=== PATIENT | male | born 1940 | race Caucasian/White ===

== ENCOUNTER 2024-12-31 20:35 | Emergency (ER) | payer MEDICARE ==
[~2024-12-31] VITALS: Ht 172.7 cm; Wt 69.4 kg
[2024-12-31] MEDS ORDERED: ELIQUIS2.5 MG PO (21:15)
[2024-12-31] MEDS ORDERED: LEVOTHYROXINE13 MCG (21:16)
[2024-12-31] MEDS ORDERED: LEVE500 PO (21:16)
[2025-01-01 02:29] LABS: BASOPHILS ABSOLUTE AUTO 0.06 K/mm3 (0.00-0.23); BASOPHILS PERCENT AUTO 1 % (0-2); EOSINOPHILS ABSOLUTE AUTO 0.61 K/mm3 (0.00-0.68); EOSINOPHILS PERCENT AUTO 7 % (0-6); Hematocrit 43.7 % (37.0-53.0); Hemoglobin 14.4 g/dL (13.5-17.5); IMMATURE GRAN ABSOLUTE AUTO 0.02 K/mm3 (0.00-0.10); IMMATURE GRAN PERCENT AUTO 0 % (0-1); LYMPHOCYTES ABSOLUTE AUTO 1.39 K/mm3 (0.84-5.20); LYMPHOCYTES PERCENT AUTO 16 % (21-46); MONOCYTES ABSOLUTE AUTO 0.87 K/mm3 (0.16-1.47); MONOCYTES PERCENT AUTO 10 % (4-13); Mean Corpuscular HGB 29.4 pg (26.0-34.0); Mean Corpuscular Volume 89 fL (80-100); Mean Platelet Volume 9.2 fL (9.1-12.4); NEUTROPHILS ABSOLUTE AUTO 5.97 K/mm3 (1.96-9.15); NEUTROPHILS PERCENT AUTO 67 % (41-73); Platelet Count 239 K/mm3 (150-400); RDW Coefficient Variation 13.2 % (11.7-14.2); RDW Standard Deviation 43.5 fL (35.1-46.3); Red Blood Cell Count 4.89 M/mm3 (4.30-5.90); White Blood Cell Count 8.92 K/mm3 (4.00-11.30)
[2025-01-01] MEDS ORDERED: Apixaban 5 MG Tab PO ONE (02:40)
[2025-01-01] MEDS ORDERED: Rosuvastatin Calcium 10 MG Tab PO ONE (02:45)
[2025-01-01] MEDS ORDERED: Tamsulosin HCl 0.4 MG Cap PO ONE (02:45)
[2025-01-01] MEDS ORDERED: LevETIRAcetam 500 MG Tab PO ONE (02:45)
[2025-01-01 03:09] LABS: Alanine Aminotransfer (ALT/SGP 17 U/L (12-78); Albumin, Blood 3.7 g/dL (3.4-5.0); Albumin/Globulin Ratio 1.1 (0.8-1.8); Alk Phos 83 U/L (50-136); Anion Gap 8 mmol/L (3-11); Aspartate Aminotrans (AST/SGOT 26 U/L (12-37); Bilirubin, Total 0.5 mg/dL (0.1-1.0); Blood Urea Nitrogen 16 mg/dL (8-24); Bun/Creatinine Ratio 10.9 (12.0-20.0); CO2, Blood 27 mmol/L (21-32); Calcium, Blood 8.9 mg/dL (8.5-10.1); Chloride, Blood 106 mmol/L (98-108); Creatinine, Blood 1.47 mg/dL (0.60-1.20); Ethanol (Alcohol), Blood, Med <3 mg/dL; Globulin, Blood 3.5 g/dL (2.2-4.0); Glomerular Filtration Rate 46 (60-); Glucose, Blood 106 mg/dL (70-99); Potassium, Blood 4.4 mmol/L (3.5-5.5); Sodium, Blood 137 mmol/L (136-145); Total Protein, Blood 7.2 g/dL (6.4-8.2)
[2025-01-01 03:35] LABS: Source, Urine Clean Catch
[2025-01-01 03:48] LABS: Bilirubin, Urine Neg (Neg); Blood, Urine Neg (Neg); Glucose Qualitative, Urine Neg (Neg); Ketones, Urine Neg (Neg); Leukocyte Esterase, Urine Neg (Neg); Nitrite, Urine Neg (Neg); Protein, Urine 1+ (Neg); Urobilinogen, Urine NORM (Normal); pH, Urine 6.5 (5.0-8.0)
[2025-01-01 04:05] LABS: Appearance, Urine Clear (Clear); Color, Urine Yellow (P-Yellow)
[2025-01-01] MEDS ORDERED: Acetaminophen 325 MG TABLET PO ONE (04:05)
[2025-01-01 04:11] LABS: U Amphetamine Screen Not Detected; U Barbituate Screen Not Detected; U Benzodiazapine Screen Not Detected; U Buprenorphine Screen Not Detected; U Cannabinoids Screen Not Detected; U Cocaine Screen Not Detected; U Methadone Screen Not Detected; U Methamphetamine Screen Not Detected; U Opiates Screen Not Detected; U Oxycodone Screen Not Detected; U Phencyclidine Screen Not Detected
[2025-01-01] MEDS ORDERED: Levothyroxine Sodium 0.05 MG Tab PO SCH (09:00)
[2025-01-01] MEDS ORDERED: Apixaban 5 MG Tab PO SCH (09:00)
[2025-01-01] MEDS ORDERED: LevETIRAcetam 500 MG Tab PO SCH (09:00)
[2025-01-01] MEDS ORDERED: Tamsulosin HCl 0.4 MG Cap PO SCH ×2 (21:00)
[2025-01-01] MEDS ORDERED: Rosuvastatin Calcium 10 MG Tab PO SCH (21:00)
== END 2025-01-01 09:29 | disposition home or self-care (01) ==
LOC: ER 20:35
PROVIDERS: Student in an Organized Health Care Education/Training Program
DX: E03.9 Hypothyroidism, unspecified (principal); F03.911 Unspecified dementia, unspecified severity, with agitation; I48.91 Unspecified atrial fibrillation; Z88.1 Allergy status to other antibiotic agents; Z88.8 Allergy status to other drugs, medicaments and biological substances; Z79.01 Long term (current) use of anticoagulants; Z79.899 Other long term (current) drug therapy; Z59.89 Other problems related to housing and economic circumstances
CPT/HCPCS: 80053; 80320; 85025; 93005; 93010; 99282; 99282-25; A9270